=== PATIENT | male | born 1970 ===

== ENCOUNTER → 2018-04-09 19:05 | Outpatient (REF) | payer OTHER, SELFPAY ==
[2018-04-09 19:22] LABS: Alanine Aminotransferase 120 IU/L (21-72); Albumin 4.7 g/dL (3.5-5.0); Albumin Globulin Ratio 1.2 (1.0-2.8); Alkaline Phosphatase 72 U/L (38-126); Aspartate Aminotransferase 75 IU/L (17-59); BUN Creatinine Ratio 21.3 (6-22); Bilirubin Total 2.8 mg/dL (0.2-1.3); Blood Urea Nitrogen 17 mg/dL (9-20); Calcium 9.8 mg/dL (8.4-10.2); Carbon Dioxide 25 mmol/L (22-32); Chloride 99 mmol/L (98-107); Estimated Glomerular Filt Rate > 60.0 mL/min (>60); Globulin 3.8 g/dL (1.7-4.1); Glucose 237 mg/dL (70-100); HDL Cholesterol 33 mg/dL (40-60); Potassium 4.4 mmol/L (3.4-5.1); Sodium 137 mmol/L (137-145); Total Protein 8.5 g/dL (6.3-8.2); Triglycerides 448 mg/dL (35-150)
[2018-04-09 19:27] LABS: HEMOLYSIS 26 (0-50)
[2018-04-09 19:30] LABS: Cholesterol 328 mg/dL (140-199)
[2018-04-09 20:09] LABS: Hematocrit 51.7 % (41-53); Mean Corpuscular HGB Conc 34.8 % (30-36); Mean Corpuscular Hemoglobin 31.1 PG (26-34); Mean Corpuscular Volume 89.5 fL (80-100); Platelet Count 186 X10^3/uL (150-400); Red Blood Cell Count 5.78 X10^6/uL (4.5-5.9); Red Cell Distribution Width 12.6 % (11.6-14.8); White Blood Cell Count 8.1 X10^3/uL (4.5-11.0)
[2018-04-09 20:23] LABS: Hemoglobin A1C% w Est Avg Glu 8.1 % (4.0-6.0)
[2018-04-09 20:53] LABS: Add Manual Diff / Slide Review YES
[2018-04-09 20:54] LABS: RBC Morphology Normal Morphology
== END ==
LOC: LAB 19:05
PROVIDERS: Visit Provider Nurse Practitioner Acute Care
DX: R73.01 Impaired fasting glucose (principal); I10 Essential (primary) hypertension
CPT/HCPCS: 80053; 80061; 83036; 85025